=== PATIENT | female | born 1955 | race Caucasian/White ===

== ENCOUNTER 2022-07-28 17:55 | Emergency (ER) | payer BC, MEDICARE ==
[2022-07-28] MEDS: Orphenadrine 60 MG/2 ML Inj IM ONE (18:45)
[2022-07-28] MEDS: Ketorolac 30 MG/ML SDV IM ONE (18:46)
[2022-07-28] MEDS: Take Home: Cyclobenzaprine 10 MG Tab, 4 Tab Pack PO ONE (19:21)
== END 2022-07-28 19:29 | disposition home or self-care (01) ==
LOC: CC.ED 17:55
DX: S20.212A Contusion of left front wall of thorax, initial encounter (principal); M62.830 Muscle spasm of back; Z79.899 Other long term (current) drug therapy; W00.0XXA Fall on same level due to ice and snow, initial encounter
CPT/HCPCS: 71101-LT; 96372; 99283; 99283-25; A9270-GY; J1885; J2360